=== PATIENT | female | born 1950 | race Caucasian/White ===

== ENCOUNTER 2021-09-30 10:48 | Outpatient (CLI) | payer MEDICARE, OTHER, SELFPAY ==
--- NOTE | 2021-09-30 11:01 | XR_ITS ---
WS: [id number] DEXA (DUAL ENERGY X-RAY ABSORPTIOMETRY) Bone mineral density was performed using a [employer] machine. HISTORY: POSTMENOPAUSAL OSTEOPOROSIS COMPARISON: 08/01/2018 Lumbar spine BMD (L1-L4): 1.140 g/cm2 T score: -0.3 Z score: 1.3 Total hip BMD: Left: 0.844 g/cm2. T score: -1.3 Z score: 0.1 Right: 0.805 g/cm2. T score: -1.6 Z score: -0.2 10 year probability of a major osteoporotic fracture is 10%. Compared to the prior study from 08/01/2018. Lumbar spine bone mineral density has increased by 0.4%. Bilateral hips bone mineral density has increased by 3.3%. XR/XR DEXA axial skeleton* 92261 IMPRESSION: OSTEOPENIA based upon the WHO classification for females. Significant increase in bone mineral density within the hips since the prior study.
== END 2021-09-30 10:49 | disposition home or self-care (01) ==
LOC: RAD 10:52
PROVIDERS: PCP Family Medicine; Visit Provider Family Medicine
DX: Z78.0 Asymptomatic menopausal state (principal); M85.80 Other specified disorders of bone density and structure, unspecified site
CPT/HCPCS: 77080

== ENCOUNTER 2023-12-10 13:08 | Outpatient (CLI) | payer MEDICARE, SELFPAY ==
--- NOTE | 2023-12-10 13:15 | XR_ITS ---
WS: [id number] DEXA (DUAL ENERGY X-RAY ABSORPTIOMETRY) Bone mineral density was performed using a [employer] ([employer]) machine. HISTORY: OSTEOPOROSIS COMPARISON: 09/30/2021 Lumbar spine BMD (L1-L4): 1.131 g/cm2 T score: -0.4 Z score: 1.2 Total hip BMD: Left: 0.869 g/cm2. T score: -1.1 Z score: 0.4 Right: 0.783 g/cm2. T score: -1.8 Z score: -0.2 10 year probability of a major osteoporotic fracture is 10.8%. Compared to the prior study from 09/30/2021. Lumbar spine bone mineral density has decreased by 0.8%. Bilateral hips bone mineral density has increased by 0.1%. XR/XR DEXA axial skeleton* [id number] IMPRESSION: OSTEOPENIA based upon the WHO classification for females. No significant change in bone mineral density.
== END 2023-12-10 13:09 | disposition home or self-care (01) ==
LOC: RAD 13:09
PROVIDERS: PCP Family Medicine; Visit Provider Family Medicine
DX: M81.0 Age-related osteoporosis without current pathological fracture (principal); M85.80 Other specified disorders of bone density and structure, unspecified site
CPT/HCPCS: 77080

== ENCOUNTER → 2024-01-29 13:32 | Outpatient (BNVA) | payer MEDICARE, SELFPAY | PROVIDERS: PCP Family Medicine; Referring Provider Emergency Medicine; Visit Provider Specialist | DX: S52.502A Unspecified fracture of the lower end of left radius, initial encounter for closed fracture; S52.602A Unspecified fracture of lower end of left ulna, initial encounter for closed fracture; W01.0XXA Fall on same level from slipping, tripping and stumbling without subsequent striking against object, initial encounter | CPT/HCPCS: 73110; 99204 ==

== ENCOUNTER 2024-01-31 08:02 | Day surgery (SDC) | payer MEDICARE, SELFPAY ==
[2024-01-31] VITALS (13 sets, daily range): BP systolic 135–171; BP diastolic 61–82; PULSE 70–97; RESP 14–17; TEMP 36.1–36.6; O2SAT 94–100; BMI 22.4
--- NOTE | 2024-01-31 08:39 | W.PM.OPSUD ---
Surgery/Procedure H&P Update DATE OF PROCEDURE: January 31, 2024 DATE H&P PERFORMED: 01/29/24 H&P UPDATE INFORMATION: I have reviewed H&P completed within last 30 days, I have examined patient prior to procedure, No changes to prior documentation and H&P is in [facility] [place] on date indicated PLANNED PROCEDURE: Operation Date: 01/31/24 09:45 Proposed Procedures p ORIF Wrist ORIF Distal Radius(Left) - Crystal Fung MD Related Problem List Diagnoses (1) Fracture of distal end of left radius and ulna: Qualifiers: Encounter type: initial encounter Fracture type: closed Qualified Code(s): S52.502A - Unspecified fracture of the lower end of left radius, initial encounter for closed fracture; S52.602A - Unspecified fracture of lower end of left ulna, initial encounter for closed fracture
[2024-01-31] MEDS: sodium chloride 0.9% 1,000 ML 30 ML IV (08:41)
[2024-01-31] MEDS: CELEcoxib 200 mg Capsule 400 MG PO (08:43)
[2024-01-31] MEDS: acetaminophen 1,000 MG/100 ML PIGGYBACK 400 MG IV (08:43)
--- NOTE | 2024-01-31 09:28 | ANES.PREANE2 ---
Pre-Anesthetic Assessment Height/Weight: Height 1.7 m Weight 64.864 kg Temp Pulse Resp BP Pulse Ox O2 Del Method 97.9 F 72 17 158/76 99 Room Air 01/31/24 08:29 01/31/24 09:10 01/31/24 09:10 01/31/24 09:10 01/31/24 09:10 01/31/24 09:10 Operation Date: 01/31/24 09:45 Proposed Procedures p ORIF Wrist ORIF Distal Radius(Left) - Crystal Fung MD Familial anesthetic complications: None Was Beta Aparna taken within 24 hours: N/A Was Clonidine taken within 24 hours: N/A Last intake: Intake Last Liquid Date 01/30/24 Last Liquid Time 22:00 Last Solid Date 01/30/24 Last Solid Time 19:00 Social No alcohol and No tobacco Exam alert, oriented x 3, clear to auscultation bilaterally and regular rate & rhythm Airway Mallampati: Class I Dentition: other (1 crown) Metabolic Hyperlipidemia Anesthetic Plan ASA status: 2 Anesthesia: General and Regional (specify below) Risk of > 500 ml blood loss (7ml/kg in children): No Medications/Allergies Home Medications Medication Instructions Recorded Confirmed Last Taken Type aspirin 81 mg capsule 81 mg PO DAILY 01/30/24 01/30/24 01/30/24 History baclofen 5 mg tablet 5 mg PO TID 01/30/24 01/30/24 01/30/24 History bupropion HCl 150 mg 24 hr tablet, 150 mg PO DAILY 01/30/24 01/30/24 01/30/24 History extended release latanoprost 0.005 % eye drops 1 drp ophthalmic (eye) DAILY 01/30/24 01/30/24 01/29/24 History mirabegron 25 mg tablet,extended 25 mg PO DAILY 01/30/24 01/30/24 01/29/24 History release 24 hr (Myrbetriq) simvastatin 20 mg tablet 20 mg PO DAILY 01/30/24 01/30/24 01/29/24 History Allergies Allergy/AdvReac Type Severity Reaction Status Date / Time No Known Allergies Allergy Verified 01/30/24 11:49 Current Medications Generic Name Dose Route Start Last Admin Trade Name Freq PRN Reason Stop Dose Admin Sodium Chloride 1,000 mls @ 30 mls/hr 01/31/24 08:15 06/27/24 08:41 Sodium Chloride 0.9% IV 02/01/24 08:14 30 mls/hr .Q24H ALEX Administration PFSH Anesthesia Social History Smoking and tobacco/nicotine status: never used tobacco/nicotine Data Anesthesia Cardiac Studies: No Data to Display
[2024-01-31] MEDS: ceFAZolin 2,000 MG in sodium chloride 0.9% (plus) 50 ML 100 MG IV (09:48)
[2024-01-31] MEDS: ceFAZolin 1,000 mg SDV 1000 MG IRRIGATION (10:24)
--- NOTE | 2024-01-31 11:35 | P.OP_ITS ---
Operative Report Date of procedure: January 31, 2024 Pre-op diagnosis: Left distal radius and ulnar fractures, comminuted and intra-articular Post-op diagnosis: Left distal radius and ulnar fractures, comminuted and intra-articular Post-op findings: Comminution of the distal radius fracture left wrist Procedure done: Open reduction internal fixation left distal radius and ulna with significant shortening and angulation Implants: Thaddeus left intermediate extra short volar distal radius plate Specimens removed/disposition: None Pathology: None Surgeon: Crystal Fung MD Utility System Repairer: Marilou Fernandez, nurse practitioner, who services were required for retraction, positioning, and completion of the surgical procedure. 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 She fell landing on her left arm. She went to the emergency room in [place], and she was placed in a splint there. She was advised that she had a significant fracture of the left distal radius with date of injury on 01/28/2024. After being seen in my office on January 28, she was scheduled for the above procedure. Risks and complications as well as benefits were discussed with her. The patient and her agreed and she was consented for the surgical procedure. Questions were further answered as needed. Procedure: Patient was brought to the operating theater, and after undergoing adequate gene ral anesthesia, LMA, ASA 2, the patient's left upper extremity was prepped and draped in usual fashion utilizing DuraPrep.? A supplemental block was placed per anesthesia.? The patient had a tourniquet placed high on the arm prior to prepping and draping.? Following prepping and draping, the arm was exsanguinated and the tourniquet was elevated.? Total tourniquet time was 52 minutes at 250 mmHg.? Prior to commencement of the surgical procedure, a surgical pause was performed.? At the time of the surgical pause, we confirmed the site and side of surgery as well as the patient's identity and preoperative surgical markings.? We also confirmed availability of equipment and appropriate preoperative IV antibiotics which was Ancef 2 g.? Fluoroscopy was also brought into position so that we could visualize the fracture and hardware throughout the surgical procedure.? The fracture was evaluated prior to tourniquet placement. Following elevation of the tourniquet as well as the surgical pause, appropriate plate was chosen. The skin was marked for appropriate incision length and location. An incision was made along the palmaris longus and continued down onto the volar surface of the radius.? Care was taken to avoid injury throughout the surgical procedure to the median nerve as well as to the radial artery.? The flexor carpi radialis was retracted medially.? We were able to essentially e levate the sheath of the flexor carpi radialis, and then I was able to place my finger directly onto the distal radius.? For the most part, the patient did her own dissection at the time of his injury.? Soft tissues were elevated off the distal radius to allow access to the fracture and also to the volar aspect of the distal radial shaft.? Reduction required manipulation, and following manipulation, the fracture was essentially anatomic. Fluoroscopy was used to determine whether or not the reduction was appropriate.? We were able to reduce the fracture nearly anatomically.? We then evaluated the plate and chose the intermediate short Rickman volar distal radius plate.? The plate was attached proximally and distally without difficulty.? A combination of locking and 1 nonlocking screw was utilized to attach the plate.? We had excellent fixation and reduction of the fracture. Fluoroscopy was utilized during the procedure.? Once the plate was fully attached, we had a near anatomic position to the distal radius and the distal radius was out to length.? Being satisfied with position, the area was copiously irrigated. There were no fascial tissues to close, and therefore, we closed the subcutaneous tissues with 2-0 interrupted Monocryl.? Skin was closed in a subcuticular fashion with 3-0 Monocryl.?Sterile dressing was then placed consisting of Dermabond, Steri-Strips, OpSite, fluffed fluffs, sterile soft roll, a volar splint, and an Casper wrap. The tourniquet was released after 52 minutes. There were no complications. There were no specimens. The procedure was well tolerated. Plan is the patient will be discharged home. Related Problem List Diagnoses (1) Fracture of distal end of left radius and ulna:
--- NOTE | 2024-01-31 12:10 | ANE.PACU2 ---
Inpatient post-anesthesia follow up: Airway intact: Yes Vital signs: Temperature 97.6 F Pulse Rate 70 Respiratory Rate 16 Blood Pressure 152/66 Pulse Oximetry 98 Oxygen Delivery Me thod Room Air Oxygen Flow Rate 6 Fraction of Inspir ed Oxygen Hydration adequate: Yes Nausea and vomiting: No Pain level: 1 Mental status: Baseline
--- NOTE | 2024-01-31 12:21 | XR_ITS ---
WS: [id number] Exam: XR wrist LT 2V [id number] Date/Time of Exam: 01/31/2024 12:21 PM Reason For Exam: ORIF, OR PIC Intraoperative AP and lateral C-arm images of the LEFT wrist are submitted. Previously noted radial fracture is now stabilized with volar plate and screw fixation in satisfactor y alignment for healing.
== END 2024-01-31 12:50 | disposition home or self-care (01) ==
PROVIDERS: PCP Family Medicine; Visit Provider Specialist
PROC: (CPT 25608; principal; 2024-01-31 09:35)
DX: S52.572A Other intraarticular fracture of lower end of left radius, initial encounter for closed fracture (principal); S52.692A Other fracture of lower end of left ulna, initial encounter for closed fracture; W01.0XXA Fall on same level from slipping, tripping and stumbling without subsequent striking against object, initial encounter; E78.5 Hyperlipidemia, unspecified; Z79.82 Long term (current) use of aspirin
CPT/HCPCS: 25608; 25652; 73100; 76000; C1713; J0131; J0690; J1100; J2405; J2704; J2795; J3010; J3490; J7030

== ENCOUNTER → 2024-02-13 15:33 | Outpatient (BNVA) | payer MEDICARE, SELFPAY | PROVIDERS: PCP Family Medicine; Visit Provider Specialist | DX: S52.502D Unspecified fracture of the lower end of left radius, subsequent encounter for closed fracture with routine healing; S52.602D Unspecified fracture of lower end of left ulna, subsequent encounter for closed fracture with routine healing; X58.XXXD Exposure to other specified factors, subsequent encounter | CPT/HCPCS: 73110 ==

== ENCOUNTER 2024-02-13 17:03 | Outpatient (CLI) | payer MEDICARE, SELFPAY | END 2024-02-13 17:04 | disposition home or self-care (01) | LOC: SPT 17:04 | PROVIDERS: PCP Family Medicine; Visit Provider Specialist | DX: Z46.89 Encounter for fitting and adjustment of other specified devices (principal); S52.502D Unspecified fracture of the lower end of left radius, subsequent encounter for closed fracture with routine healing; X58.XXXD Exposure to other specified factors, subsequent encounter | CPT/HCPCS: 97760; L3982 ==

== ENCOUNTER → 2024-02-27 13:25 | Outpatient (BNVA) | payer MEDICARE, SELFPAY | PROVIDERS: PCP Family Medicine; Visit Provider Specialist | DX: S52.502D Unspecified fracture of the lower end of left radius, subsequent encounter for closed fracture with routine healing (principal); S52.602D Unspecified fracture of lower end of left ulna, subsequent encounter for closed fracture with routine healing; Z98.890 Other specified postprocedural states; X58.XXXD Exposure to other specified factors, subsequent encounter | CPT/HCPCS: 73110 ==

== ENCOUNTER → 2024-03-17 14:49 | Outpatient (BNVA) | payer MEDICARE, SELFPAY | PROVIDERS: PCP Family Medicine; Visit Provider Nurse Practitioner | DX: S52.502D Unspecified fracture of the lower end of left radius, subsequent encounter for closed fracture with routine healing (principal); S52.602D Unspecified fracture of lower end of left ulna, subsequent encounter for closed fracture with routine healing; X58.XXXD Exposure to other specified factors, subsequent encounter | CPT/HCPCS: 73110; 99024 ==

== ENCOUNTER → 2024-04-09 15:08 | Outpatient (BNVA) | payer MEDICARE, SELFPAY | PROVIDERS: PCP Family Medicine; Visit Provider Nurse Practitioner | DX: S52.502D Unspecified fracture of the lower end of left radius, subsequent encounter for closed fracture with routine healing (principal); S52.602D Unspecified fracture of lower end of left ulna, subsequent encounter for closed fracture with routine healing; X58.XXXD Exposure to other specified factors, subsequent encounter | CPT/HCPCS: 73110; 99024 ==

== ENCOUNTER 2024-05-06 06:30 | Outpatient (RCR) | payer MEDICARE, SELFPAY | END 2024-06-05 23:59 | disposition home or self-care (01) | LOC: SOT 06:30 | PROVIDERS: Visit Provider Nurse Practitioner | DX: S52.502D Unspecified fracture of the lower end of left radius, subsequent encounter for closed fracture with routine healing (principal); X58.XXXD Exposure to other specified factors, subsequent encounter | CPT/HCPCS: 97022; 97110; 97140; 97165 ==

== ENCOUNTER → 2024-05-21 13:21 | Outpatient (BNVA) | payer MEDICARE, SELFPAY | PROVIDERS: PCP Family Medicine; Visit Provider Nurse Practitioner | DX: S52.502D Unspecified fracture of the lower end of left radius, subsequent encounter for closed fracture with routine healing (principal); S52.602D Unspecified fracture of lower end of left ulna, subsequent encounter for closed fracture with routine healing; X58.XXXD Exposure to other specified factors, subsequent encounter; R20.2 Paresthesia of skin | CPT/HCPCS: 73110; 99214 ==

== ENCOUNTER 2024-06-06 06:00 | Outpatient (RCR) | payer MEDICARE, SELFPAY | END 2024-07-05 23:59 | disposition home or self-care (01) | LOC: SOT 06:00 | PROVIDERS: PCP Family Medicine; Visit Provider Nurse Practitioner | DX: S52.502D Unspecified fracture of the lower end of left radius, subsequent encounter for closed fracture with routine healing (principal); X58.XXXD Exposure to other specified factors, subsequent encounter | CPT/HCPCS: 97022; 97110; 97140 ==

== ENCOUNTER → 2024-06-12 10:44 | Outpatient (BNVA) | payer MEDICARE, SELFPAY | PROVIDERS: Referring Provider Nurse Practitioner; Visit Provider Specialist | DX: S52.502D Unspecified fracture of the lower end of left radius, subsequent encounter for closed fracture with routine healing (principal); S52.602D Unspecified fracture of lower end of left ulna, subsequent encounter for closed fracture with routine healing; R20.0 Anesthesia of skin; R20.2 Paresthesia of skin; G56.12 Other lesions of median nerve, left upper limb; X58.XXXD Exposure to other specified factors, subsequent encounter | CPT/HCPCS: 95910 ==

== ENCOUNTER → 2024-06-18 13:23 | Outpatient (BNVA) | payer MEDICARE, SELFPAY | PROVIDERS: PCP Family Medicine; Visit Provider Nurse Practitioner | DX: S52.502D Unspecified fracture of the lower end of left radius, subsequent encounter for closed fracture with routine healing (principal); S52.602D Unspecified fracture of lower end of left ulna, subsequent encounter for closed fracture with routine healing; X50.9XXD Other and unspecified overexertion or strenuous movements or postures, subsequent encounter; G56.12 Other lesions of median nerve, left upper limb; R20.2 Paresthesia of skin | CPT/HCPCS: 73090; 73110; 80053; 81001; 85025 ==

== ENCOUNTER 2024-06-18 15:20 | Outpatient (CLI) | payer MEDICARE, SELFPAY | END 2024-06-18 15:21 | disposition home or self-care (01) | LOC: SPT 15:21 | PROVIDERS: PCP Family Medicine; Visit Provider Nurse Practitioner | DX: S52.502D Unspecified fracture of the lower end of left radius, subsequent encounter for closed fracture with routine healing (principal); S52.602D Unspecified fracture of lower end of left ulna, subsequent encounter for closed fracture with routine healing; X50.9XXD Other and unspecified overexertion or strenuous movements or postures, subsequent encounter; G56.12 Other lesions of median nerve, left upper limb; R20.2 Paresthesia of skin | CPT/HCPCS: 99214; L3908 ==

== ENCOUNTER 2024-06-19 09:12 | Day surgery (SDC) | payer MEDICARE, SELFPAY ==
[2024-06-19] VITALS (10 sets, daily range): BP systolic 143–165; BP diastolic 65–79; PULSE 69–84; RESP 12–16; TEMP 36.4–36.5; O2SAT 97–100
[2024-06-19] MEDS: sodium chloride 0.9% 1,000 ML 30 ML IV (09:50)
[2024-06-19] MEDS: acetaminophen 1,000 MG/100 ML PIGGYBACK 400 MG IV (09:53)
[2024-06-19] MEDS: gabapentin 300 mg Capsule PO (09:53)
[2024-06-19] MEDS: CELEcoxib 200 mg Capsule 400 MG PO (09:53)
--- NOTE | 2024-06-19 10:10 | ANES.PREANE2 ---
Pre-Anesthetic Assessment Height/Weight: Height 5 ft 7 in Weight 140 lb Temp Pulse Resp BP Pulse Ox O2 Del Method 97.7 F 80 16 146/71 98 Room Air 06/19/24 09:30 06/19/24 09:30 06/19/24 09:30 06/19/24 09:30 06/19/24 09:30 06/19/24 09:30 Preop Diagnosis: Carpal tunnel syndrome Operation Date: 06/19/24 11:35 Proposed Procedures p Carpal Tunnel Release(Left) - Crystal Fung MD Was Beta Aparna taken within 24 hours: N/A Was Clonidine taken within 24 hours: N/A Last intake: Intake Last Liquid Date 06/18/24 Last Liquid Time 21:00 Last Solid Date 06/18/24 Last Solid Time 19:00 Social No alcohol and No tobacco Exam alert, oriented x 3, clear to auscultation bilaterally and regular rate & rhythm Airway Submandibular: within normal limits Cervical ROM: within normal limits Mallampati: Class II Dentition: full Anesthetic Plan ASA status: 2 Anesthesia: General Other: No prior issues with anesthesia Wrist procedure earlier this year under [place] without issues NPO since yesterday Patient denies any cardiac or pulmonary issues Preop BP 146/71 METs greater than 4 Plan for general anesthesia with local via surgeon Medications/Allergies Home Medications Medication Instructions Recorded Confirmed Last Taken Type aspirin 81 mg capsule 81 mg PO DAILY 01/30/24 06/19/24 06/18/24 History baclofen 5 mg tablet 5 mg PO TID 01/30/24 06/19/24 06/18/24 History bupropion HCl 150 mg 24 hr tablet, 150 mg PO DAILY 01/30/24 06/19/24 06/18/24 History extended release latanoprost 0.005 % eye drops 1 drp ophthalmic (eye) DAILY 01/30/24 06/19/24 06/18/24 History mirabegron 25 mg tablet,extended 25 mg PO DAILY 01/30/24 06/19/24 06/18/24 History release 24 hr (Myrbetriq) simvastatin 20 mg tablet 20 mg PO DAILY 01/30/24 06/19/24 06/18/24 History fast form splint, left #1 ea 02/13/24 06/19/24 Unknown Rx celecoxib 100 mg capsule (Celebrex) 100 mg PO BID #60 caps 06/17/24 06/19/24 06/18/24 Rx cock-up splint #1 ea 06/18/24 06/19/24 Unknown Rx Allergies Allergy/AdvReac Type Severity Reaction Status Date / Time No Known Allergies Allergy Verified 06/18/24 13:23 Current Medications Generic Name Dose Route Start Last Admin Trade Name Freq PRN Reason Stop Dose Admin Sodium Chloride 1,000 mls @ 30 mls/hr 06/19/24 09:30 06/19/24 09:50 Sodium Chloride 0.9% IV 06/20/24 09:29 30 mls/hr .Q24H ALEX Administration PFSH Anesthesia Medical History Positive Tinel sign Social History Smoking and tobacco/nicotine status: never used tobacco/nicotine Data Anesthesia Cardiac Studies: No Data to Display
[2024-06-19] MEDS: ceFAZolin 2,000 mg SDV 2000 MG IVP (11:04)
--- NOTE | 2024-06-19 11:09 | W.PM.OPSUD ---
Surgery/Procedure H&P Update DATE OF PROCEDURE: June 19, 2024 DATE H&P PERFORMED: 06/18/24 H&P UPDATE INFORMATION: I have reviewed H&P completed within last 30 days, I have examined patient prior to procedure, No changes to prior documentation and H[place] is in [facility] [place] indicated PREOP DIAGNOSIS: Carpal tunnel syndrome PLANNED PROCEDURE: Operation Date: 06/19/24 11:35 Proposed Procedures p Carpal Tunnel Release(Left) - Crystal Fung MD Related Problem List Diagnoses (1) Left median nerve neuropathy:
[2024-06-19] MEDS: BUPivacaine 0.5% INJ 30 mL XX (11:45)
--- NOTE | 2024-06-19 12:18 | PM.OP ---
Operative Report Date of procedure: June 19, 2024 Pre-op diagnosis: Left carpal tunnel syndrome Post-op diagnosis: Left carpal tunnel syndrome Post-op findings: Significant compression across the carpal canal with thinning of the median nerve and purpleish discoloration. Additionally, some tightness along the patient's previous ORIF incision. Procedure done: Left carpal tunnel release with soft tissue release as well more proximally Implants: None Specimens removed/disposition: None Pathology: None Surgeon: Crystal Fung MD Hosted Services Analyst: None Anesthesia: General (Per LMA, ASA 2) Estimated blood loss (mL): 2 Tourniquet time (min): 18 (At 250 mmHg) IV fluids (mL): 800 Urine output (mL): 0 (No Daley) Complications: None Findings: Significant compression across the median nerve with thinning and purpleish discoloration. Also, a small area proximally over the patient's previous open reduction internal fixation incision which was released with a Hamburg. Condition: stable Disposition: PACU (Then return to same-day surgery for discharge to home) Brief History: This 73-year-old woman presents following open reduction internal fixation in January 2024. She has EMG findings consistent with carpal tunnel syndrome on the left at the wrist. Ulnar nerves were noted to be normal. The patient had significant enough symptoms, she wished to proceed with surgical intervention and release. Risks and complications were discussed with her in the office, consents were signed. We also discussed that there was possibly some impingement upon the median nerve from the patient's volar plate. At this time, we will not remove the plate but instead will deal with the carpal tunnel release to see whether or not this is beneficial for her. She understands this and consents for the surgical procedure. Procedure: The patient was brought to the operating theater. The patient had general anesthesia per LMA, ASA 2. The tourniquet was elevated to 250 mmHg for a total tourniquet time of 18 minutes. The patient was also given Ancef 2 g preoperatively. The arm was then prepped and draped with DuraPrep in usual fashion with the arm draped free. A surgical pause was performed. At the time, the surgical pause, we confirmed the site and side of surgery. We also confirmed the patient's identity, appropriate and timely administration of preoperative antibiotics and preoperative surgical markings. An incision was then made along the thenar crease. The incision crossed the wrist joint in a curvilinear fashion. Dissection continued through skin and soft tissues using a scalpel. The palmaris longus was identified along with the transverse carpal ligament. Each of these was released carefully to avoid injury to the median nerve. We were able to dissect gently into the carpal canal which was noted to be quite tight with significant compression across the median nerve. The nerve was visualized and was an hourglass shape, and it was noted to be quite thinned. The canal was subsequently palpated to assure there was no bony encroachment upon the canal. There was a quite thickened fibrous tissue within the canal, and this was opened longitudinally as well. The canal was then palpated distally and proximally to assure that my small finger was passed easily without impingement. Because of the patient's history of open reduction internal fixation, a Hamburg was passed up along the patient's previous incision to release any potential scar tissue which might have been causing some impingement upon the median nerve. Finding no further compression across the nerve, attention was directed to closure. The wound was irrigated with ropivacaine plain. It was then closed with 3-0 nylon in an interrupted mattress fashion. Sterile dressing was then placed consisting of Dermabond, OpSite, fluffed fluffs, sterile soft roll, and an Casper wrap. The tourniquet was released after 18 minutes. There were no complications. There were no specimens. The procedure was well tolerated. Plan is the patient will be discharged home. Related Problem List Diagnoses (1) Left median nerve neuropathy:
--- NOTE | 2024-06-19 13:00 | ANE.PACU2 ---
Inpatient post-anesthesia follow up: Airway intact: Yes Vital signs: Temperature 97.6 F Pulse Rate 69 Respiratory Rate 12 Blood Pressure 161/70 Pulse Oximetry 97 Oxygen Delivery Me thod Room Air Oxygen Flow Rate 10 Fraction of Inspir ed Oxygen Hydration adequate: Yes Nausea and vomiting: No Pain level: 1 Mental status: Baseline
== END 2024-06-19 13:00 | disposition home or self-care (01) ==
PROVIDERS: PCP Family Medicine; Visit Provider Specialist
PROC: (CPT 64721; principal; 2024-06-19 11:25)
DX: G56.02 Carpal tunnel syndrome, left upper limb (principal); Z79.82 Long term (current) use of aspirin
CPT/HCPCS: 64721; J0131; J0690; J1100; J2405; J2704; J3010; J3490; J7030

== ENCOUNTER → 2024-07-02 08:30 | Outpatient (BNVA) | payer MEDICARE, SELFPAY | PROVIDERS: PCP Family Medicine; Visit Provider Nurse Practitioner | DX: Z98.890 Other specified postprocedural states (principal); G56.12 Other lesions of median nerve, left upper limb; S52.502D Unspecified fracture of the lower end of left radius, subsequent encounter for closed fracture with routine healing; S52.602D Unspecified fracture of lower end of left ulna, subsequent encounter for closed fracture with routine healing; X58.XXXD Exposure to other specified factors, subsequent encounter | CPT/HCPCS: 99024 ==

== ENCOUNTER 2024-07-06 06:00 | Outpatient (RCR) | payer MEDICARE, SELFPAY | END 2024-08-05 23:59 | disposition home or self-care (01) | LOC: SOT 06:00 | PROVIDERS: PCP Family Medicine; Visit Provider Nurse Practitioner | DX: S52.502D Unspecified fracture of the lower end of left radius, subsequent encounter for closed fracture with routine healing (principal); X58.XXXD Exposure to other specified factors, subsequent encounter | CPT/HCPCS: 97022; 97110 ==

== ENCOUNTER → 2024-08-13 09:35 | Outpatient (BNVA) | payer MEDICARE, SELFPAY | PROVIDERS: PCP Family Medicine; Visit Provider Nurse Practitioner | DX: S52.502D Unspecified fracture of the lower end of left radius, subsequent encounter for closed fracture with routine healing (principal); S52.602D Unspecified fracture of lower end of left ulna, subsequent encounter for closed fracture with routine healing; Z98.890 Other specified postprocedural states; X58.XXXD Exposure to other specified factors, subsequent encounter | CPT/HCPCS: 73090; 99214 ==